=== PATIENT | female | born 1940 | race Caucasian/White ===

== ENCOUNTER 2017-09-20 | Inpatient (IN) | payer MEDICARE, OTHER ==
[2017-09-20] VITALS (7 sets, daily range): BP systolic 123–196; BP diastolic 63–87
[~2017-09-20] VITALS: Ht 165.1 cm; Wt 83.0 kg
[~2017-09-20] MED LIST: AMLO1TAB13 PO; ESOM40CA PO; EZET10TA13 PO; FOLI1TAB16 PO; HYDR-548 PO; METO-358 PO; OMEG1CAP55 PO; SIMV20TA6 PO; SOLI5TAB2 PO; TRAM50TA2 PO; ZOLP10TA6 PO
[2017-09-20] MEDS ORDERED: ESOM40CA52 PO (00:37)
[2017-09-20] MEDS ORDERED: MINO2.5T PO (00:37)
[2017-09-20] MEDS ORDERED: LISI-603 PO (00:37)
[2017-09-20] MEDS ORDERED: GABA-532 PO (00:37)
[2017-09-20] MEDS ORDERED: EZET10TA13 PO (00:37)
[2017-09-20] MEDS ORDERED: SIMV20TA6 PO (00:37)
[2017-09-20] MEDS ORDERED: CANA1TAB2 PO (00:37)
[2017-09-20] MEDS ORDERED: FERR325T30 PO (00:37)
[2017-09-20] MEDS ORDERED: CLON0.1T PO (00:37)
[2017-09-20] MEDS ORDERED: METOPROLOL SUCCINATE XL 25 MG TAB.SR.24H PO ONE ×2 (00:45→00:51)
[2017-09-20] MEDS ORDERED: ASPIRIN 81 MG TAB.CHEW PO ONE (00:45)
[2017-09-20] MEDS ORDERED: NITROGLYCERIN OINT 1 GM PACKET TP ONE ×2 (00:45→00:51)
[2017-09-20] MEDS ORDERED: ASPIRIN 81 MG TAB.CHEW ONE (00:51)
[2017-09-20 00:54] LABS: BASOPHILS # (AUTO) 0.1 K/uL (0.0-8.0); BASOPHILS % (AUTO) 1.2 % (0.0-2.0); EOSINOPHILS # (AUTO) 0.1 K/uL (0.0-0.7); EOSINOPHILS % (AUTO) 1.4 % (0.0-7.0); HEMATOCRIT 33.9 % (31.2-41.9); HEMOGLOBIN 11.1 g/dL (10.9-14.3); LYMPHOCYTES # (AUTO) 2.1 K/uL (20.0-40.0); LYMPHOCYTES % (AUTO) 39.5 % (20.5-51.5); MEAN CORPUSCULAR HEMOGLOBIN 22.3 uug (24.7-32.8); MEAN CORPUSCULAR HGB CONC 33 g/dL (32.3-35.6); MEAN CORPUSCULAR VOLUME 68.1 fL (75.5-95.3); MONOCYTES # (AUTO) 0.6 K/uL (2.0-10.0); NEUTROPHILS # (AUTO) 2.4 K/uL (1.8-8.9); NEUTROPHILS % (AUTO) 45.9 % (38.5-71.5); PLATELET COUNT (AUTO) 170 K/uL (179-408); RED BLOOD CELL COUNT(AUTO) 4.98 MIL/uL (3.63-4.92); WHITE BLOOD COUNT (AUTO) 5.2 K/uL (3.8-11.8)
[2017-09-20 01:02] LABS: CARBON DIOXIDE 27 mmol/L (21-32); CHLORIDE 101 mmol/L (98-107); CREATININE 1.1 mg/dL (0.6-1.3); GLUCOSE 128 mg/dL (74-106); POTASSIUM 4.7 mmol/L (3.5-5.1); UREA NITROGEN, BLOOD 16 mg/dL (7-18)
--- NOTE | 2017-09-20 01:39 | NUR ---
Panel call to [employer] placed at this time. Call back pending.
--- NOTE | 2017-09-20 02:30 | NUR ---
Report given to Stephania BEARDEN on Telemetry. Pt. admitted to Telemetry , under care of Ramu Styles NP Belongs List completed
--- NOTE | 2017-09-20 03:00 | NUR ---
Received pt in unit via wheelchair. Observed to have steady gait and AAO x3, [place] speaking with friend at bedside helping with translation. BP 172/87 and HR at 75. Tele monitor sinus rhythm. Admitting DEPUTY PROSECUTING ATTORNEY Stephani notified. Pertinent assessments done. Unit orientation provided. Pt made aware of plan of care. Safe environment implemented. Call light within reach.
[2017-09-20] MEDS ORDERED: MAGNESIUM HYDROXIDE 30 ML LIQUID UDC PO PRN (04:15)
[2017-09-20] MEDS ORDERED: ZOLPIDEM 5 MG TABLET PO PRN (04:15)
[2017-09-20] MEDS ORDERED: ONDANSETRON 4 MG/2 ML VIAL IV PRN (04:15)
[2017-09-20] MEDS ORDERED: CLONIDINE HCL 0.1 MG TABLET PO PRN (04:15)
[2017-09-20] MEDS ORDERED: ENOXAPARIN SODIUM 40 MG/0.4 ML DISP.SYRIN SQ SCH (04:15)
[2017-09-20] MEDS ORDERED: HYDROCODONE/APAP 5-325MG TABLET PO PRN (04:15)
[2017-09-20] MEDS ORDERED: ACETAMINOPHEN 325 MG TABLET PO PRN (04:15)
--- NOTE | 2017-09-20 07:15 | NUR ---
Rec'd pt awake, A&O x3. During bedside shift report pt c/o of severe headache and slight dizziness and expressed that it may be due to her BP. BP checked, 202/99 78. Pt requesting for her Lisinopril. Per pt, she usually takes it at 0600 at home. Offered Clonidine PRN as ordered for SBP >140. Pt refused and stated she prefers to take Lisinopril. Administered 0900 Lisinopril and Minoxidil as requested. Pt sitting up in bed in semi-fowlers position. SR on Tele at 78. On RA, denies dyspnea. All safety precautions in place at this time. Will continue to monitor closely.
[2017-09-20] MEDS: GABAPENTIN 100 MG CAPSULE PO SCH ×2 (08:23→12:21)
[2017-09-20] MEDS ORDERED: LISINOPRIL 20 MG TABLET PO SCH (09:00)
[2017-09-20] MEDS ORDERED: ASPIRIN 81 MG TAB.CHEW PO SCH (09:00)
[2017-09-20] MEDS ORDERED: FERROUS SULFATE 325 MG TABEC PO SCH (09:00)
[2017-09-20] MEDS ORDERED: EZETIMIBE 10 MG TABLET PO SCH (09:00)
[2017-09-20] MEDS ORDERED: MINOXIDIL 2.5 MG TABLET PO SCH (09:00)
[2017-09-20] MEDS ORDERED: INSULIN REGULAR, HUMAN 300 UNIT/3 ML VIAL SQ PRN (11:45)
[2017-09-20] MEDS ORDERED: DEXTROSE 50% 50 ML DISP.SYRIN IV PRN (11:45)
--- NOTE | 2017-09-20 15:16 | NUR ---
Pt seen and examined by Dr. Maria with new order to D/C Tele.
--- NOTE | 2017-09-20 16:06 | NUR ---
Pt with order for discharge to home. Pt made aware.
[2017-09-20] MEDS ORDERED: BLOOD SUGAR DIAGNOSTIC 1 EACH STRIP VI SCH (16:30)
--- NOTE | 2017-09-20 16:57 | NUR ---
Pt discharged to home accompanied by son. Pt in fair condition. Discharge instructions and medication orders given to patient. Pt left with all her valuables. ID band and IV site removed. All needs met at this time. Assisted to lobby by [facility]1 staff.
[2017-09-20] MEDS ORDERED: SIMVASTATIN 20 MG TABLET PO SCH (21:00)
== END 2017-09-20 16:55 | disposition home or self-care (01) | DRG 206 ==
LOC: ER 00:05 → TELE 02:00 → MED 15:20
PROVIDERS: ADMIT Nurse Practitioner Acute Care; ATTEND Registered Nurse
DX: M94.0 Chondrocostal junction syndrome [Tietze] (principal); F06.4 Anxiety disorder due to known physiological condition; M19.90 Unspecified osteoarthritis, unspecified site; K21.9 Gastro-esophageal reflux disease without esophagitis; I11.9 Hypertensive heart disease without heart failure; E11.9 Type 2 diabetes mellitus without complications; E66.9 Obesity, unspecified; Z68.30 Body mass index [BMI] 30.0-30.9, adult; E78.5 Hyperlipidemia, unspecified; Z82.3 Family history of stroke; Z83.3 Family history of diabetes mellitus; Z96.653 Presence of artificial knee joint, bilateral; E78.00 Pure hypercholesterolemia, unspecified; Z79.899 Other long term (current) drug therapy
CPT/HCPCS: 36415; 70030-TC; 71045; 85025; 85730; 93005; 93307; A4663; J1650; J1815